=== PATIENT | male | born 1965 | race Caucasian/White ===

== ENCOUNTER 2025-07-31 14:13 | Inpatient (IN) | payer OTHER, SELFPAY ==
[2025-07-31] VITALS (8 sets, daily range): BP systolic 92–140; BP diastolic 54–94; PULSE 74–97; BMI 27.7; BMI 27.3
--- NOTE | 2025-07-31 10:26 | ED.GENMED ---
History of Present Illness
General
Chief Complaint: Rectal Bleeding
Time Seen by Provider: 07/31/25 09:42
History of Present Illness
History of Present Illness:
60-year-old male with history of high blood pressure presenting to the emergency department for concern of GI bleed. Patient reports for the past 4 days he has had black tarry stools. Denies ever having this in the past. Symptoms started 4 days
ago with some cold sweats. He then started to have black tarry stools. Notes some generalized abdominal cramping. Denies any history of stomach ulcer or diverticulosis. Does note that 2 to 3 weeks ago he had a gout flare so was taking
indomethacin and ibuprofen, however notes that he was taking them appropriately. Denies chest pain or difficulty breathing. Denies additional acute medical complaints
Past History
Past History
ED Past Medical History: HTN, Hypercholesterolemia and Other (Melanoma)
ED Past Surgical History: Other (Hernia repair)
Social History
Tobacco: Former smoker
Alcohol: Occasional
Drug: None
Employment: Employed
Family History
Family History: Other (NA)
Phy Exam
Physical Exam
Physical Exam:
General: Well-appearing, no clinical signs of dehydration, nontoxic and in no acute distress
HEENT: protecting airway
Neck: appears supple
CV: Normal heart rate, regular rhythm
Resp: No accessory muscle use, no increased work of breathing, lungs clear to auscultation bilaterally
Abd: Soft and non-distended, no tenderness to palpation
Extremities: No deformities, no swelling
Neuro: alert, no focal neurologic deficit
: deferred
Rectal: Hemoccult positive, black
Psych: Normal affect
Skin: Intact
Course
Orders/Labs/Results
Orders:
Orders
07/31/25 10:11
CT Abd/pelvis W Iv Cont Urgent
Comment:
Reason For Exam: black stool, abdominal cramping
0.9% Sodium Chloride 1000 ml [Nss] 1,000 ml IV BOLUS
07/31/25 10:43
Complete Blood Count/With Diff Urgent
Comprehensive Metabolic Panel Urgent
PTT Urgent
Prothrombin Time Urgent
07/31/25 11:06
IV Insert/Care/Rem.- Treatment PRN
07/31/25 11:25
Type And Crossmatch [Type+Screen] Urgent
07/31/25 11:53
Urinalysis Reflex To Culture Urgent
Date Specimen was Collected: 07/31/25
Time Specimen was Collected: 11:52
Urine Microscopic Reflex Cult Urgent
07/31/25 13:20
Admit/Transfer Patient As Directed
Co-Sign Provider:
Level of Care: Inpatient admission
Assign to:: Telemetry
Physician / Group: Arabella madera
Diagnosis: Acute upper GI bleed
Reason for Telemetry: Other
Other Reason for Telemetry: Bleeding
Date to Stop Telemetry: 08/02/25
Time to Stop Telemetry: 11:00
Reason for Hospitalization: Acute upper GI bleed
Expected length of stay greater than two midnights?: Yes
ELOS- Estimated Length of Stay in days: 3
I certify the patient meets the requirements for IP care: Yes
PRN Pain Medication Management As Directed
May give lesser potent ordered pain med per pt: Yes
preference::
Protocol:: Medication orders for pain may be administered in a
manner that supports deferring to patient preference
when the pt is:
- Requesting an ordered lesser potent pain medication.
Least to most potent pain medications are defined
as: acetaminophen < NSAID < tramadol < opioids
(morphine, oxycodone, hydromorphone).
- Requesting a lesser dose of the same medication IF
ORDERED.
- Requesting a less intrusive route of administration
if both routes are prescribed by the provider (PO <
IV).
07/31/25 13:23
Code Status As Directed
Resuscitation Status: Full Code
Reached after discussion with pt or family/Healthcare POA: Yes
07/31/25 13:27
Amlodipine [Norvasc] 10 mg PO ONCE ONE
07/31/25 13:58
Pantoprazole [Protonix IV] 80 mg IV NOW STA
07/31/25 Dinner
NPO
Allow oral meds: Yes
Allow clear liquids: Sips of Clears
NPO with Ice Chips: Yes
07/31/25 15:37
H&H Q8H
Acetaminophen [Tylenol] 650 mg PO Q6HPRN PRN MILD PAIN
07/31/25 15:37
GASTROINTESTINAL CONSULT Routine
Consulting Provider: Damon Nino
Was physician already notified: Yes
Reason for consult: Acute Upper GI bleed
Activity As Directed
Activity Level: As Tolerated
INT (Intravenous Needle Therapy) As Directed
Comment: Place 2 IV catheters of the largest bore possible until stable
Orthostatic Vital Signs As Directed
Orthostatic VS Frequency: Now
Comment: then every four hours for twenty-four hours
Pneumatic Compression Sleeves As Directed
Type: Knee high
Vital Signs As Directed
Frequency: Per unit guidelines
DX Deep Vein Thrombosis Video Routine
07/31/25 18:00
Atorvastatin [Lipitor] 20 mg PO QPM
07/31/25 20:00
Carvedilol [Coreg] 12.5 mg PO BID
Pantoprazole [Protonix IV] 40 mg IV BID
07/31/25 23:37
H&H Q8H
08/01/25 06:00
Basic Metabolic Panel IN AM
Complete Blood Count/No Diff IN AM
08/01/25 08:00
Amlodipine [Norvasc] 7.5 mg PO DAILY
Losartan [Cozaar] 100 mg PO DAILY
08/02/25 11:00
DC Protocol for Telemetry ONCE
Abnormal Lab Results
07/31/25 07/31/25
10:43 11:53
RBC 2.66 L 10^6/uL
(4.70-6.10)
Hgb 8.4 L g/dL
(13.0-18.0)
Hct 23.2 L %
(39.0-52.0)
MCH 31.6 H pg
(27.0-31.0)
Sodium 134 L mmol/L
(135-145)
BUN 41 H mg/dl
(9-20)
Glucose 130 H mg/dl
(70-99)
Ur Occult Blood Reflex 2+ A
(Negative)
07/31/25 10:43
07/31/25 10:43
Vital Signs
Initial and Last Documented VS:
Initial Vital Signs
Temp Pulse Resp BP Pulse Ox
98.0 F 105 18 136/94 100
07/31/25 09:20 07/31/25 09:20 07/31/25 09:20 07/31/25 09:20 07/31/25 09:20
Last Documented Vital Signs
Temp Pulse Resp BP Pulse Ox
98 F 92 18 131/79 100
07/31/25 15:41 07/31/25 15:41 07/31/25 15:41 07/31/25 15:41 07/31/25 15:41
MDM/Problems Addressed
MDM/Problems Addressed:
60-year-old male with history of high blood pressure presenting to the emergency department for dark black stool. Vital signs are significant for mild tachycardia.
On exam, patient is in no acute distress, mild dryness to mucous membranes. Unremarkable cardiac, pulmonary, abdominal exam. However on Hemoccult testing, black stool, Hemoccult positive. Concern for GI bleed. May be precipitated by indomethacin
and ibuprofen, which patient was taking for his gout. Will screen with laboratory analysis and CT abdominal imaging for further assessment. Started patient on IV fluids
12:30 -labs are unremarkable with the exception of hemoglobin of 8.4 which does appear to be changed from prior hemoglobin. Will consent for blood if hemoglobin continues to drop, however holding transfusion at this time given hemodynamic
stability. CT without acute significant pathology. In the setting of anemia and active GI bleed, plan for admission
*Pulse Oximetry
SaO2: 100
Oxygen Mode of Delivery: Room air
Patient hypoxic: no
*Critical Care Note
Total Time (30-74mins, 75-104mins- exclusive of procedures): Not Applicable
ED Attending Note
-
Portions of this chart may have been created with voice recognition software.� Occasional wrong word or��sound alike� substitutions may have occurred due to the inherent limitations of voice recognition software.
Discharge Plan
Departure
Patient Disposition: Admit
Date of Disposition: 07/31/25
Time of Disposition: 12:54
Presentation/result/management discussed w/ accepting MD/DO: Hospitalist
Patient with high blood pressure during this ER visit?: No
Condition: Fair
Discharge Problem:
GI (gastrointestinal bleed), Anemia
Interventions
Interventions:
*Risk Screen - Suicide Last Done: 07/31/25 09:20
*General Assessment Last Done: 07/31/25 09:20
*Neglect/Abuse Screening Last Done: 07/31/25 10:39
*ED- Fall Risk Assessment Last Done: 07/31/25 10:38
*ED COVID-19 Vaccine History Last Done: 07/31/25 10:38
*ED Influenza Vaccine History Last Done: 07/31/25 10:38
*Nursing Disposition Last Done: 07/31/25 15:30
BQ-Tzewla-Rjvtcioyuj Assessment Last Done: 07/31/25 10:40
ED- Cardiac Assessment Last Done: 07/31/25 10:39
ED- Pulmonary Assessment Last Done: 07/31/25 10:39
Discharge Date and Time
Discharge Date/Time: 07/31/25 15:30
[2025-07-31] MEDS: NSS 1000 IV (10:44)
[2025-07-31 10:55] LABS: Hematocrit 23.2 % (39.0-52.0); Hemoglobin 8.4 g/dL (13.0-18.0); Mean Corp Hgb Conc. 36.2 g/dL (33.0-37.0); Mean Corpuscular Volume 87.2 fL (80.0-94.0); Nucleated Red Blood Cells % 0 % (-); Platelet Count 263 10^3/uL (130-400); Red Cell Dist. Width 11.7 % (11.5-14.5)
[2025-07-31 11:07] LABS: INR 1.06; PT 14.1 Sec (11.4-14.6)
[2025-07-31 11:08] LABS: APTT 24.3 Sec (23.4-35.0)
[2025-07-31 11:18] LABS: ALT (SGPT) 28 U/L (0-50); AST (SGOT) 21 U/L (17-59); Albumin 4.0 g/dl (3.5-5.0); Alkaline Phosphatase 49 U/L (38-126); Blood Urea Nitrogen 41 mg/dl (9-20); Calcium 10.0 mg/dl (8.4-10.2); Carbon Dioxide 26 mmol/L (22-30); Chloride 102 mmol/L (98-107); Estimated Creatinine Clearance 69 ml/min; Glucose 130 mg/dl (70-99); Potassium 4.2 mmol/L (3.5-5.1); Sodium 134 mmol/L (135-145); Total Protein 6.5 g/dl (6.3-8.2); eGFR > 60.00
[2025-07-31 12:08] LABS: Urine Character Clear (Clear)
[2025-07-31 12:45] LABS: Urine Squamous Cell 0-2 /LPF (Few)
[2025-07-31 12:46] LABS: Urine Red Blood Cell 0-2 /HPF (0-2); Urine White Cell 0-2 /HPF (0-5)
--- NOTE | 2025-07-31 12:58 | HPS.HSE ---
Addendum entered and electronically signed by Arabella Garnica MD 07/31/25 14:18:
This is an addendum to H&P written by Sylwia Odell on 07/31/2025. �Patient seen and examined independently with resident.
60-year-old male past medical history of hypertension, hyperlipidemia, obstructive sleep apnea, obesity, nonobstructive CAD, recent prediabetes, gout, presenting with black tarry stools starting 3 days ago. �Occasional lower abdominal cramping.
He was having gout flare of right second toe and has been taking indomethacin, aspirin, prednisone not with food as instructed.
No dizziness or syncope. Occasional shortness of breath.� Had colonoscopy 12 years ago which was normal.�
He is complaining of warm swelling in bilateral calves occasionally.
Vital signs show normal for mild tachycardia. �Rectal exam shows Hemoccult positive black stool.
Labs show hemoglobin 8.4. �BUN of 41. �CT abdomen pelvis shows multiple bilateral renal cysts.
Patient with upper GI bleeding likely gastric ulcer secondary to recent indomethacin, prednisone given for gout flare. �Gout flareup is currently resolved. �N.p.o., type and screen, check iron studies and B12, hold aspirin, Protonix 40 IV twice
daily, GI consulted.
Original Note:
Family Physician
-
Family Physician: Eladio Schwartz
Chief Complaint
-
Melanotic stools, possible GI bleed.
History of Present Illness
60-year-old male with PMHx significant for hypertension, hyperlipidemia, EMRE, obesity, angina, gout, impaired glucose tolerance (recent diagnosis) presents to the ER for evaluation of tarry black stools. Patient states that he was absolutely fine
until Wednesday, woke up in the midnight of Wednesday drenching in sweat and felt cold and clammy. Since a.m. in the Wednesday he has been having black tarry stools with intermittent cramping abdominal pain in his lower abdomen that is about 2/10 in
intensity. He was recently put on 2 weeks of indomethacin and prednisone course for gout on right second toe (resolved as of today) patient also used ibuprofen on top of indomethacin and prednisone to help his pain, but admits to have not taking it
as prescribed with food. He noticed himself straining a little bit for bowel movements in the recent past. He felt short of breath in the a.m. today, but denies orthopnea or PND.
His recent colonoscopy was about 12 years ago, and he is due for 1 now. He also denies having any recent travel outside of [facility] or sick contacts.
He has never felt constipated, had diarrhea or similar episodes in the past, denies having nausea emesis, reflux, cough, chest pain, fevers, chills, syncope or near syncopal episodes. He denies having dysuria, frequency, hesitancy.
Medical History
Past Medical History
Past Medical History: Reports Other (Hypertension, hyperlipidemia, EMRE, angina, gout, impaired glucose tolerance, obesity)
Past Surgical History: Reports Other (Inguinal hernia repair)
Social History
Tobacco: Former Smoker ([id number] smoking history, quit smoking 20 years ago)
Alcohol: Occasional (Twice in a year)
Drug: None
Personal:
Living: With Family
Employment: Employed
Family History
Family History: Not pertinent
Allergies / Home Medications
Allergies reflects when Allergies were last updated in [facility].
Home Medications with original date entered in [facility]
Allergy/Medication List:
Allergies
Allergy/AdvReac Type Severity Reaction Status Date / Time
No Known Allergies Allergy Verified 07/31/25 09:20
Home Medications
aspirin 81 mg tablet,delayed release 81 mg PO DAILY Blood clot prevention/tx 01/05/20
atorvastatin 20 mg tablet 20 mg PO QPM High cholesterol 10/28/20
carvedilol 12.5 mg tablet 12.5 mg PO BID Heart disease/condition 10/28/20
losartan 100 mg tablet (Cozaar) 100 mg PO DAILY Blood pressure 10/28/20
multivitamin with folic acid 400 mcg tablet (Tab-A-Héctor) 1 tab PO DAILY Supplement 10/28/20
amlodipine 5 mg tablet 7.5 mg (1.5 x 5 mg) PO DAILY #135 tabs 10/29/20
acetaminophen 325 mg tablet (Tylenol) 650 mg PO Q6HPRN PRN MILD PAIN 07/31/25
calcium carbonate (Tums) 200 mg PO BIDPRN PRN GERD 07/31/25
Review of Systems
-
Constitutional: Reports Fatigue
EENT: Reports No Symptoms
Respiratory: Reports Trouble Breathing
Cardiac: Reports No Symptoms
Abdomen/GI: Reports Abdominal Pain and Black Stools
: Reports No Symptoms
Musculoskeletal: Reports No Symptoms
Skin: Reports No Symptoms
Neurological: Reports No Symptoms
Endocrine: Reports No Symptoms
Hematologic/Lymphatic: Reports No Symptoms
Physical Exam
Vital Signs
Vital Signs
Temp Pulse Resp BP Pulse Ox
98.0 F 95 18 136/94 100
07/31/25 09:20 07/31/25 10:42 07/31/25 09:20 07/31/25 09:20 07/31/25 10:40
Physical Exam
General: No Apparent Distress, Comfortable and Other (Pallor)
HEENT: Anicteric; No Moist mucous membranes
Respiratory: Clear; No Wheezes, Rales, Rhonchi or Crackles
Cardiac: S1/S2 and Regular Rhythm; No Murmur, Rub or Gallop
GI: Soft, Non Tender, Normal Bowel Sounds and Other (Supraumbilical hernia, reducible.)
Genito-urinary: Clear Urine
Musculoskeletal: No Clubbing, No Cyanosis and No Edema
Skin: Warm
Neuro: AO x 3
Psych: Calm
Laboratory Results
-
07/31/25 10:43
07/31/25 10:43
Laboratory Results
PT 14.1 Sec (11.4-14.6) 07/31/25 10:43
INR 1.06 07/31/25 10:43
APTT 24.3 Sec (23.4-35.0) 07/31/25 10:43
Total Bilirubin 0.7 mg/dl (0.2-1.3) 07/31/25 10:43
AST 21 U/L (17-59) 07/31/25 10:43
ALT 28 U/L (0-50) 07/31/25 10:43
Alkaline Phosphatase 49 U/L (38-126) 07/31/25 10:43
Data Reviewed
-
Lab Data: Labs Reviewed by me, Discussed with Physician and Discussed with Patient
Impression/Plan
-
IMPRESSION: 60-year-old male with PMHx significant for hypertension, hyperlipidemia, EMRE, obesity, angina, gout presents to the hospital for evaluation of black tarry stools. He is found to have an acute GI bleed and is being admitted to hospital
for workup of acute GI bleed.
PLAN:
# Acute GI bleed-
Dark black-colored stools, AFVSS.
Hemoglobin at 8.4, BUN at 45.
Consistent with upper GI bleed, GI consulted.
Recent history of NSAID and steroid use along with aspirin use, patient admits to have taken it on empty stomach on several occasions.
Hold aspirin for now, consult GI.
Protonix twice daily, IV fluids.
Trend H&H, obtain iron and vitamin B12 and folate levels in the a.m. tomorrow.
GI on board, appreciate GI inputs.
# Acute hyponatremia-
Mild, likely hypovolemic from dehydration.
Monitor serum sodium with IV fluids.
# Acute gout-
Resolved
# Essential hypertension-
Home medications include amlodipine 7.5, carvedilol 12.5 twice daily, losartan.
Holding parameters for now.
# Hyperlipidemia-
Atorvastatin.
# Impaired glucose tolerance-
Currently n.p.o.
# DVT prophylaxis-
SCD
# CODE STATUS-
Full code.
--- NOTE | 2025-07-31 14:22 | EDCM ---
CM reviewed chart and met with pt bedside in ED. Lives with his in 2 story home, [address], has first floor half bath, full flight to second floor bedroom and full bath.
Independent in ADLs, personal care and ambulation at baseline. 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
Confirms prescription coverage.
No hx VN or SNF.
PCP: Eladio Schwartz
Pharmacy: [facility]
Anticipate discharge home, CM will continue to follow for all discharge planning needs.
[2025-07-31] MEDS: PROTONIX IV 80 MG IV (15:15)
[2025-07-31] MEDS: NORVASC 10 MG PO (15:15)
--- NOTE | 2025-07-31 15:18 | CON.GI ---
Addendum entered and electronically signed by Damon Nino MD 07/31/25 16:44:
I saw and examined the patient.
The HAT CHECKER or PA's note was reviewed and I agree with the note.
Comment:
This patient is a 60-year-old man who has a history of hypertension and hypercholesterolemia. He does use [id number] NSAIDs and prednisone for gout. He did notice black stool and did come in with a hemoglobin drop from 13-8.
abd: soft, nontender
impression
melena/ugi bleed
anemia
plan:
PPI bid
avoid nsaids
EGD in am
follow hgb
colonoscopy at some point
Original Note:
Consultation
-
Date/Time Consultation Requested: 07/31/25 1515
Date/Time Consultation Performed: 07/31/25 1520
Requesting Provider: Sylwia Moser MD
Performing Provider: KILLIAN Conway, Damon Nino MD
Reason for Consultation: melena
Medical History
Chief Complaint / HPI
Chief Complaint: black stools
History of Present Illness:
Pt is a 60yo with hx melanoma, HTN, hypercholesterolemia, hypertriglyceridemia, EMRE, hernia repair, obesity, pre DM, gout with recent flare over last few weeks with OTC NSAIDs, indomethacin, and Prednisone use with onset of black stools since
Wednesday. Hbg was 13.3 on 07/11 now 8.4 on admission with BUN 40. Pt admits to 1 black stool daily and shortness of breath but denies dysphagia, GERD, nausea, vomiting, hematemesis, abdominal pain, diarrhea, constipation or red blood in stools. No
hx EGD in past. hx 10/2012- colonoscopy - The entire examined colon is normal. On admission CT a/p There are multiple bilateral renal cysts.
Past Medical History
Past Medical History: CAD (non obstructive ), Cancer (melanoma), HTN (with prior HTN urgency ), Hypercholesterolemia, NIDDM (pre-DM) and Other (EMRE, hypertriglyceridemia , obesity, gout)
Past Surgical History: Other (hernia repair )
Social History
Tobacco: Non-Smoker
Alcohol: None
Drug: None
Personal:
Living: With Family
Employment: Employed
Family History
Family History: Other (no family hx colon CA or polyps)
Allergies / Home Medications
Allergy/AdvReac Type Severity Reaction Status Date / Time
No Known Allergies Allergy Verified 07/31/25 09:20
�Medication �Instructions �Recorded
aspirin 81 mg tablet,delayed 81 mg PO DAILY Blood clot 01/05/20
release prevention/tx
atorvastatin 20 mg tablet 20 mg PO QPM High cholesterol 10/28/20
carvedilol 12.5 mg tablet 12.5 mg PO BID Heart 10/28/20
disease/condition
losartan 100 mg tablet (Cozaar) 100 mg PO DAILY Blood pressure 10/28/20
multivitamin with folic acid 400 1 tab PO DAILY Supplement 10/28/20
mcg tablet (Tab-A-Héctor)
acetaminophen 325 mg tablet 650 mg PO Q6HPRN PRN MILD PAIN 07/31/25
(Tylenol)
amlodipine 10 mg tablet (Norvasc) 10 mg PO DAILY 07/31/25
calcium carbonate (Tums) 200 mg PO BIDPRN PRN GERD 07/31/25
Review of Systems
-
History Source: Patient
Constitutional: Reports Weight Loss (few lbs with current issues )
EENT: Reports No Symptoms
Respiratory: Reports Trouble Breathing
Cardiac: Reports No Symptoms
Abdomen/GI: Reports Diarrhea and Black Stools
: Reports No Symptoms
Musculoskeletal: Reports No Symptoms
Skin: Reports No Symptoms
Neurological: Reports Weakness
Endocrine: Reports No Symptoms
Hematologic/Lymphatic: Reports Bleeding
Vital Signs
Temp Pulse Resp BP Pulse Ox
98.0 F 90 13 107/62 96
07/31/25 09:20 07/31/25 15:17 07/31/25 13:00 07/31/25 15:15 07/31/25 13:00
Physical Exam
Exam
General: Well Developed, Well Nourished and No Apparent Distress
HEENT: Normocephalic, Anicteric and Moist Mucous Membranes
Respiratory: Clear
Cardiac: Regular Rhythm
GI: Soft, Non Tender and Non Distended
Rectal: Other (heme + black in ER)
Musculoskeletal: No Clubbing and No Cyanosis
Skin: Warm and Dry
Neuro: Awake, Alert and AO x 3
Psych: Calm
Results
WBC 6.1 10^3/uL (4.8-10.8) 07/31/25 10:43
Hgb 8.4 g/dL (13.0-18.0) L 07/31/25 10:43
Hct 23.2 % (39.0-52.0) L 07/31/25 10:43
MCV 87.2 fL (80.0-94.0) 07/31/25 10:43
Plt Count 263 10^3/uL (130-400) 07/31/25 10:43
Absolute Neuts (auto) 4.3 10^3/uL (1.4-6.5) 07/31/25 10:43
PT 14.1 Sec (11.4-14.6) 07/31/25 10:43
INR 1.06 07/31/25 10:43
APTT 24.3 Sec (23.4-35.0) 07/31/25 10:43
Sodium 134 mmol/L (135-145) L 07/31/25 10:43
Potassium 4.2 mmol/L (3.5-5.1) 07/31/25 10:43
Chloride 102 mmol/L (98-107) 07/31/25 10:43
Carbon Dioxide 26 mmol/L (22-30) 07/31/25 10:43
BUN 41 mg/dl (9-20) H 07/31/25 10:43
Creatinine 1.2 mg/dL (0.7-1.3) 07/31/25 10:43
Calcium 10.0 mg/dl (8.4-10.2) 07/31/25 10:43
Total Bilirubin 0.7 mg/dl (0.2-1.3) 07/31/25 10:43
AST 21 U/L (17-59) 07/31/25 10:43
ALT 28 U/L (0-50) 07/31/25 10:43
Alkaline Phosphatase 49 U/L (38-126) 07/31/25 10:43
Diagnostic Image Results:
Prior GI Procedures:
EGD: none
Colonoscopy: hx 10/2012- colonoscopy - The entire examined colon is normal.
Assessment / Plan
-
Pt is a 60yo with hx melanoma, HTN, hypercholesterolemia, hypertriglyceridemia, EMRE, hernia repair, obesity, pre DM, gout with recent flare over last few weeks with OTC NSAIDs, indomethacin, and Prednisone use with onset of black stools since
Wednesday. Hbg was 13.3 on 07/11 now 8.4 on admission with BUN 40. Pt admits to 1 black stool daily and shortness of breath but denies dysphagia, GERD, nausea, vomiting, hematemesis, abdominal pain, diarrhea, constipation or red blood in stools. No
hx EGD in past. hx 10/2012- colonoscopy - The entire examined colon is normal. On admission CT a/p There are multiple bilateral renal cysts.
-melena
-anemia
-recent gout flare with OTC NSAIDs, indomethacin, and Prednisone
other med problems:
hx melanoma, HTN, hypercholesterolemia, hypertriglyceridemia, EMRE, hernia repair, obesity, pre DM
PLAN:
etiology of melena related to PUD, gastritis with recent NSAID/steroids/indomethacin use, ectasia, mass vs other
plan for EGD 08/[address] Nino
NPO in AM
cont Protonix BID
trend hbg and stool record
pending results will need eventual colonoscopy with last in 2012
educated on NSAID avoidance
discussed monitor for dizziness and caution with getting out bed
-
-
Thank you for consultation and allowing me to participate in the patient's care. Please call the economic analysis director GI physician during the after hours with any questions or concerns.
[2025-07-31 16:53] LABS: Iron 93 ug/dl (49-181)
[2025-07-31 17:02] LABS: Total Iron Binding Capacity 292 ug/dl (261-462)
[2025-07-31 17:28] LABS: Ferritin 69.4 ng/ml (17.9-464.0)
[2025-07-31 17:30] LABS: Hematocrit 22.7 % (39.0-52.0); Hemoglobin 8.2 g/dL (13.0-18.0)
[2025-07-31] MEDS: LIPITOR 20 MG PO (17:31)
[2025-07-31 17:59] LABS: Folate > 20.0 ng/ml (2.76-20); Vitamin B12 514 pg/ml (239-931)
[2025-07-31] MEDS: NSS (PRESERVATIVE FREE) 10 ML IV (20:07)
[2025-07-31] MEDS: PROTONIX IV 40 MG IV (20:07)
[2025-07-31] MEDS: COREG 12.5 MG PO (20:08)
[2025-07-31] MEDS: TYLENOL 650 MG PO (20:08)
[2025-08-01] VITALS (14 sets, daily range): BP systolic 14–136; BP diastolic 51–78; PULSE 82–106
[2025-08-01 00:27] LABS: Hematocrit 21.1 % (39.0-52.0); Hemoglobin 7.4 g/dL (13.0-18.0)
[2025-08-01] MEDS: COREG PO (08:15)
[2025-08-01] MEDS: NSS (PRESERVATIVE FREE) 10 ML IV ×2 (08:17→19:56)
[2025-08-01] MEDS: PROTONIX IV 40 MG IV ×2 (08:18→19:56)
[2025-08-01 08:36] LABS: Hematocrit 19.9 % (39.0-52.0); Hemoglobin 6.9 g/dL (13.0-18.0); Mean Corp Hgb Conc. 34.7 g/dL (33.0-37.0); Mean Corpuscular Volume 90.0 fL (80.0-94.0); Platelet Count 253 10^3/uL (130-400); Red Cell Dist. Width 11.9 % (11.5-14.5)
--- NOTE | 2025-08-01 08:59 | W.PN.UPDATE ---
Update Note
Progress Note Update
EGD:
deep clean based ulcer in duodenum
gastritis, esophagitis, duodenitis
bx for Hpylori
plan:
PPI po bid x8 weeks
no nsaids
f/u as outpatient for colonoscopy
ok to eat today
will sign off call with questions
[2025-08-01 09:23] LABS: Blood Urea Nitrogen 30 mg/dl (9-20); Calcium 8.6 mg/dl (8.4-10.2); Carbon Dioxide 26 mmol/L (22-30); Chloride 105 mmol/L (98-107); Estimated Creatinine Clearance 69 ml/min; Glucose 98 mg/dl (70-99); Iron 84 ug/dl (49-181); Potassium 4.0 mmol/L (3.5-5.1); Sodium 137 mmol/L (135-145); eGFR > 60.00
[2025-08-01 09:33] LABS: Total Iron Binding Capacity 278 ug/dl (261-462)
[2025-08-01 09:43] LABS: Ferritin 66.3 ng/ml (17.9-464.0)
[2025-08-01 10:14] LABS: Folate > 20.0 ng/ml (2.76-20); Vitamin B12 587 pg/ml (239-931)
--- NOTE | 2025-08-01 11:12 | W.PN.HOSP.TC ---
Today's Communication/Plan
-
With soft blood pressure monitor overnight
Blood transfusion
PPI twice daily
Assessment / Plan
Assessment / Plan
General: No Apparent Distress, Comfortable and Other (Pallor)
HEENT: Anicteric; No Moist mucous membranes
Respiratory: Clear; No Wheezes, Rales, Rhonchi or Crackles
Cardiac: S1/S2 and Regular Rhythm; No Murmur, Rub or Gallop
GI: Soft, Non Tender, Normal Bowel Sounds and Other (Supraumbilical hernia, reducible.)
Genito-urinary: Clear Urine
Musculoskeletal: No Clubbing, No Cyanosis and No Edema
Skin: Warm
Neuro: AO x 3
Psych: Calm
IMPRESSION: 60-year-old male with PMHx significant for hypertension, hyperlipidemia, EMRE, obesity, angina, gout presents to the hospital for evaluation of black tarry stools. He is found to have an acute GI bleed and is being admitted to hospital
for workup of acute GI bleed.
PLAN:
# Suspected acute upper GI bleed likely secondary to duodenal ulcer
Recent history of NSAID and steroid use along with aspirin use, patient admits to have taken it on empty stomach on several occasions.
Status post endoscopy which showed deep clean-based ulcer in duodenum. Gastritis. Esophagitis. Duodenitis. Status post biopsy.
Protonix twice daily,
Diet restarted.
Patient was placed on 81 mg of aspirin per his java technical manager. Patient does not have any cardiac stent. No prior history of stroke per patient. Discussed with gastroenterology hold aspirin 2 weeks minimum for now. Patient agreeable with the plan.
#Acute blood loss anemia secondary to GI bleeding
Hemoglobin 6.9. Plan to transfuse 1 unit of PRBC.
# Acute hyponatremia-
Mild, likely hypovolemic from dehydration.
Resolved
# Acute gout-
Resolved
Show discussed with primary doctor for prevention therapy likely allopurinol or other modality
# Essential hypertension-
Blood pressure 100/66. Monitor blood pressure closely as patient on multiple antihypertensive medication.
# Hyperlipidemia-
Atorvastatin.
# Impaired glucose tolerance-
Currently n.p.o.
# DVT prophylaxis-
SCD
# CODE STATUS-
Full code.
Discussed with gastroenterology
Anticipated Discharge: Within 24 hours
Subjective/Interval History
-
Date of Service: August 01, 2025
Denies feeling lightheaded or dizzy
Receiving blood transfusion currently
Objective Data
-
Labs:
Laboratory Results
07/31/25 08/01/25
23:49 05:48
WBC 5.8
Hgb 7.4 L 6.9 L*
Hct 21.1 L 19.9 L*
Plt Count 253
Sodium 137
Potassium 4.0
Chloride 105
Carbon Dioxide 26
BUN 30 H
Creatinine 1.2
Glucose 98
Calcium 8.6
Vital Signs:
Vital Signs
Temp Pulse Resp BP Pulse Ox
98.2 F 76 18 107/66 96
08/01/25 10:35 08/01/25 10:35 08/01/25 10:35 08/01/25 10:35 08/01/25 10:35
Data Reviewed
-
Total Time Spent with Patient (in minutes): 55
[2025-08-01] MEDS: TYLENOL 650 MG PO (11:36)
--- NOTE | 2025-08-01 15:38 | PTCARENOTE ---
This RN took over care of patient at 15:34. Upon recieving and assessing patient blood was not hanging. Blood transfusion was documented as completed when care this RN received patient as I am unsure when blood was completed. Vitals taken at this
time also and documented.
--- NOTE | 2025-08-01 16:05 | CM ---
Reviewed chart. Met with pt bedside. On room air. transfused with 1 unit PRBC. Repeat lab work pending. Probable DC if H/H is stable.
Plan: DC home, no needs
[2025-08-01 16:35] LABS: Hematocrit 22.8 % (39.0-52.0); Hemoglobin 7.8 g/dL (13.0-18.0); Mean Corp Hgb Conc. 34.2 g/dL (33.0-37.0); Mean Corpuscular Volume 86.7 fL (80.0-94.0); Nucleated Red Blood Cells % 0 % (-); Platelet Count 244 10^3/uL (130-400); Red Cell Dist. Width 14.1 % (11.5-14.5)
--- NOTE | 2025-08-01 16:58 | PTCARENOTE ---
Pt's Unit of PRBC'S ended at 14:30. VS documented. Cont to assess patient status.
[2025-08-01] MEDS: LIPITOR 20 MG PO (17:30)
[2025-08-01] MEDS: COREG 12.5 MG PO (19:55)
[2025-08-02 03:22] VITALS: BP 109/62
[2025-08-02 07:10] VITALS: BP 107/71
[2025-08-02 08:29] LABS: Hematocrit 22.3 % (39.0-52.0); Hemoglobin 7.6 g/dL (13.0-18.0); Mean Corp Hgb Conc. 34.1 g/dL (33.0-37.0); Mean Corpuscular Volume 86.1 fL (80.0-94.0); Nucleated Red Blood Cells % 0 % (-); Platelet Count 266 10^3/uL (130-400); Red Cell Dist. Width 14.6 % (11.5-14.5)
[2025-08-02] MEDS: COREG 12.5 MG PO (08:31)
[2025-08-02] MEDS: COZAAR 100 MG PO (08:32)
[2025-08-02] MEDS: NSS (PRESERVATIVE FREE) 10 ML IV (08:32)
[2025-08-02] MEDS: PROTONIX IV 40 MG IV (08:32)
--- NOTE | 2025-08-02 10:37 | W.PN.HOSP.TC ---
Today's Communication/Plan
-
Transfuse for later PRBC
Repeat H&H
Hold Norvasc
Plan for tentative DC
Continue with PPI
Assessment / Plan
Assessment / Plan
General: No Apparent Distress, Comfortable and Other (Pallor)
HEENT: Anicteric; No Moist mucous membranes
Respiratory: Clear; No Wheezes, Rales, Rhonchi or Crackles
Cardiac: S1/S2 and Regular Rhythm; No Murmur, Rub or Gallop
GI: Soft, Non Tender, Normal Bowel Sounds and Other (Supraumbilical hernia, reducible.)
Genito-urinary: Clear Urine
Musculoskeletal: No Clubbing, No Cyanosis and No Edema
Skin: Warm
Neuro: AO x 3
Psych: Calm
IMPRESSION: 60-year-old male with PMHx significant for hypertension, hyperlipidemia, EMRE, obesity, angina, gout presents to the hospital for evaluation of black tarry stools. He is found to have an acute GI bleed and is being admitted to hospital
for workup of acute GI bleed.
PLAN:
#Suspected acute upper GI bleed likely secondary to duodenal ulcer
Recent history of NSAID and steroid use along with aspirin use, patient admits to have taken it on empty stomach on several occasions.
Status post endoscopy which showed deep clean-based ulcer in duodenum. Gastritis. Esophagitis. Duodenitis. Status post biopsy.
Protonix twice daily,
Diet restarted.
Patient was placed on 81 mg of aspirin per his traffic enumerator. Patient does not have any cardiac stent. No prior history of stroke per patient. Discussed with gastroenterology hold aspirin 2 weeks minimum for now. Patient agreeable with the plan.
#Acute blood loss anemia secondary to GI bleeding
Hemoglobin of 7.6. Plan to transfuse additional unit of PRBC and then repeat H&H thereafter.
# Acute hyponatremia-
Mild, likely hypovolemic from dehydration.
Resolved
# Acute gout-
Resolved
Show discussed with primary doctor for prevention therapy likely allopurinol or other modality
# Essential hypertension-
Continue with carvedilol and losartan. Recommend to hold Norvasc and follow-up with primary doctor.
# Hyperlipidemia-
Atorvastatin.
# DVT prophylaxis-
SCD
# CODE STATUS-
Full code.
More than 30 minutes spent in discharge including
Final examination of the patient
Summarizing hospital stay
Instructions for continuing care to all relevant caregivers
Preparation of discharge records, prescriptions, and referral forms
Total time spent (in minutes): 53
Anticipated Discharge: Today
Subjective/Interval History
-
Date of Service: August 02, 2025
No overnight events
Denies any lightheaded or dizziness.
States had a bowel movement with dark-colored stools. No bright red blood.
Objective Data
-
Labs:
Laboratory Results
08/02/25 08/02/25
07:14 13:30
WBC 6.0
Hgb 7.6 L Pending
Hct 22.3 L Pending
Plt Count 266
Vital Signs:
Vital Signs
Temp Pulse Resp BP Pulse Ox
98.2 F 69 16 124/69 99
08/02/25 07:10 08/02/25 08:31 08/02/25 07:10 08/02/25 08:31 08/02/25 07:10
I&O
08/01/25 08/02/25 08/03/25
06:59 06:59 06:59
Intake Total 970 / 970
Output Total 250 / 250
Balance 720 / 720
[2025-08-02 10:45] VITALS: BP 109/65
[2025-08-02 11:01] VITALS: BP 108/62
[2025-08-02 13:23] VITALS: BP 115/68
[2025-08-02 14:15] LABS: Hematocrit 24.4 % (39.0-52.0); Hemoglobin 8.1 g/dL (13.0-18.0)
--- NOTE | 2025-08-02 15:00 | CM ---
Pt is discharged. Will be taken home by his .
Plan: Home no needs
[2025-08-02 15:55] VITALS: BP 113/65
[2025-08-03 02:29] LABS: Transferrin 199 mg/dL (200-360)
== END 2025-08-02 16:30 | disposition home or self-care (01) | DRG 378 ==
LOC: 4 EAST ACU 14:13
PROVIDERS: Student in an Organized Health Care Education/Training Program; ADMITTING PHYSICIAN Hospitalist; ATTENDING PHYSICIAN Hospitalist; CONSULT PHYSICIAN Internal Medicine; EMERGENCY PHYSICIAN Student in an Organized Health Care Education/Training Program; FAMILY PHYSICIAN Family Medicine
PROC: 30233N1 Transfusion of Nonautologous Red Blood Cells into Peripheral Vein, Percutaneous Approach (ICD-10-PCS; 2025-08-01)
PROC: 0DB68ZX Excision of Stomach, Via Natural or Artificial Opening Endoscopic, Diagnostic (ICD-10-PCS; 2025-08-01)
DX: K26.4 Chronic or unspecified duodenal ulcer with hemorrhage (principal); D62 Acute posthemorrhagic anemia; E87.1 Hypo-osmolality and hyponatremia; I10 Essential (primary) hypertension; G47.33 Obstructive sleep apnea (adult) (pediatric); I25.10 Atherosclerotic heart disease of native coronary artery without angina pectoris; R73.03 Prediabetes; K21.00 Gastro-esophageal reflux disease with esophagitis, without bleeding; M10.9 Gout, unspecified; E78.00 Pure hypercholesterolemia, unspecified; E78.1 Pure hyperglyceridemia; E86.0 Dehydration; E86.1 Hypovolemia; E66.9 Obesity, unspecified; K29.70 Gastritis, unspecified, without bleeding; Z79.899 Other long term (current) drug therapy; Z68.27 Body mass index [BMI] 27.0-27.9, adult; Z79.82 Long term (current) use of aspirin; Z87.891 Personal history of nicotine dependence
CPT/HCPCS: 74177; 80048; 80053; 81003; 81015; 82607; 82728; 82746; 83540; 83550; 84466; 85014; 85018; 85025; 85027; 85610; 85730; 86850; 86900; 86901; 86920; 88305; 88342; 96360; 99284; P9016; Q9967

== ENCOUNTER 2025-10-01 06:20 | Day surgery (SDC) | payer OTHER, SELFPAY | END 2025-10-01 13:29 | disposition home or self-care (01) | LOC: GI 06:20 | PROVIDERS: ATTENDING PHYSICIAN Internal Medicine; FAMILY PHYSICIAN Family Medicine | DX: Z12.11 Encounter for screening for malignant neoplasm of colon (principal); D12.5 Benign neoplasm of sigmoid colon; K63.5 Polyp of colon | CPT/HCPCS: 45385; 45380; 88305 ==